=== PATIENT | female | born 1980 | race Caucasian/White ===

== ENCOUNTER → 2017-09-03 | Emergency (ER) | payer MEDICAID, OTHER ==
[~2017-09-03] VITALS: Ht 165.1 cm; Wt 101.0 kg
[~2017-09-03] MED LIST: ACET500C5 PO; AMOX1TAB10 PO
[2017-09-03 20:18] VITALS: Ht 165.1 cm; Wt 101.0 kg
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
[2017-09-04 01:36] VITALS: BP 135/89; PULSE 78; RESP 20; TEMP 98.7
== END | disposition home or self-care (01) ==
LOC: FTE 19:51
DX: S20.219A Contusion of unspecified front wall of thorax, initial encounter (principal); S02.80XA Fracture of other specified skull and facial bones, unspecified side, initial encounter for closed fracture; S06.0X0A Concussion without loss of consciousness, initial encounter; I10 Essential (primary) hypertension; E11.9 Type 2 diabetes mellitus without complications; V89.2XXA Person injured in unspecified motor-vehicle accident, traffic, initial encounter
CPT/HCPCS: 70450; 71010; Z7502

== ENCOUNTER 2018-03-18 08:45 | Emergency (ER) | END 2018-03-18 11:42 | disposition home or self-care (01) ==